=== PATIENT | female | born 1955 | race Caucasian/White ===

== ENCOUNTER 2022-04-04 09:04 | Outpatient (CLI) | payer MEDICARE, MEDICAID, SELFPAY ==
--- NOTE | 2022-04-04 09:25 | USCV_ITS ---
Vamshi Rossy Age: 66 Gender: F : 1955 Exam Date: 04/04/2022 09:55 Ordering Phys: Raj Castillo XX Technologist: MARIAA Exam Location: [facility] – [place] Indication: SYNCOPE Risk Factors: Previous Vascular Surgery: Right Brachial BP: / Left Brachial BP: / Right Left Velocity (cm/s) Spectral Plaque Velocity (cm/s) Spectral Plaque Syst/Diast Broadening Syst/Diast Broadening 96.60/ 29.10 Prox CCA 90.60 / 39.30 70.10/ 23.10 Mid CCA 70.90 / 34.20 59.80/ 17.90 Distal CCA 63.20 / 28.40 81.60/ 29.80 Prox ICA 42.10 / 18.40 79.50/ 35.00 Mid ICA 73.00 / 36.20 82.90/ 37.10 Distal ICA 65.10 / 27.20 159.10 ECA 152.40 0.86 ICA/CCA 0.81 Antegrade Vertebral Antegrade 39.40/ 15.80 cm/s 46.00/ 22.30 cm/s Tri Subclavian Tri 159.1 130.1 0 0 FINDINGS Comparison: none available. No significant elevation of systolic or diastolic velocities. Diffuse bilateral scattered calcified plaque and intimal thickening throughout the common carotid arteries and extending through the bifurcation, right greater than left. Antegrade vertebral arteries. CONCLUSIONS Bilateral ICA stenosis less than 50%. Diffuse carotid atherosclerosis. Dr. Kinjal Fletcher DO (Electronically Signed) Final Date: 04 Apr 2022 10:49 S
--- NOTE | 2022-04-04 09:25 | USCV_ITS ---
Rossy Bonds Age: 66 Gender: F : 1955 Exam Date: 04/04/2022 10:11 Ordering Phys: Raj Castillo XX Technologist: MARIAA [place] [facility] [facility] [place]ication: CHRONIC SYSTOLIC CHF BP: 120 / 96 HR: 98 Rhythm: Sinus Technical Quality: Adequate MEASUREMENTS (Male / Female) Normal Values 2D ECHO LV Diastolic Diameter PLAX 4.5 cm 4.2 - 5.9 / 3.9 - 5.3 cm LV Systolic Diameter PLAX 2.9 cm IVS Diastolic Thickness 1.1 cm 0.6 - 1.0 / 0.6 - 0.9 cm IVS Systolic Thickness 1.3 cm LVPW Diastolic Thickness 1.0 cm 0.6 - 1.0 / 0.6 - 0.9 cm LVPW Systolic Thickness 1.6 cm LVOT Diameter 2.0 cm LV Ejection Fraction 2D Teich 63.5 % LV Ejection Fraction MOD 2C 61.6 % LV Ejection Fraction 2C AL 61.6 % LA Diameter 2.9 cm LA Width 2.9 cm LA Height 5.4 cm RA Width 3.0 cm RA Height 4.6 cm Aorta at Sinotubular Diameter 2.5 cm IVC Diameter 1.6 cm M-MODE Aortic Annulus Diameter 2.6 cm LA Ao Ratio MM 1.1 MV E Point Septal Separation 0.4 cm DOPPLER AV Peak Velocity 152.7 cm/s LVOT Peak Velocity 99.0 cm/s AV Area Cont Eq vti 2.3 cm squared AV Area Cont Eq pk 2.0 cm squared MV Peak Velocity 121.0 cm/s MV Area PHT 5.0 cm squared MV E' Velocity 52.0 cm/s Mitral E to MV E' Ratio 5.9 Mitral E to LV E' Lateral Ratio 5.7 Mitral E to LV E' Septal Ratio 6.0 TR Peak Velocity 193.1 cm/s TR Peak Gradient 14.9 mmHg TR Mean Velocity 157.4 cm/s TR Mean Gradient 11.2 mmHg TR Velocity Time Integral 57.1 cm TV Peak E Velocity 49.0 cm/s Right Atrial Pressure 3.0 mmHg Pulmonary Artery Systolic Pressu 17.9 mmHg PV Peak Velocity 106.0 cm/s RV Acceleration Time 0.1 s RV Ejection Time 0.3 s RV AcT/ET 0.3 FINDINGS Left Ventricle Normal left ventricular size, systolic function and wall thickness, with no regional wall motion abnormalities. Left ventricular ejection fraction is estimated at 60 %. Indeterminate diastolic function. Right Ventricle Normal right ventricular size and systolic function. Right ventricular systolic pressure 24 mmHg. Right Atrium Normal right atrial size. Left Atrium Normal left atrial size. Mitral Valve Structurally normal mitral valve. No mitral valve stenosis. Trace mitral valve regurgitation. Aortic Valve Structurally normal trileaflet aortic valve. No aortic valve stenosis. No aortic valve regurgitation. Tricuspid Valve Structurally normal tricuspid valve. No tricuspid valve stenosis. Trace tricuspid valve regurgitation. Pulmonic Valve Structurally normal pulmonic valve. No pulmonary valve stenosis. Trace pulmonary valve regurgitation. Pericardium No pericardial effusion. Aorta Normal size aortic root and proximal ascending aorta. Normal sized inferior vena cava. CONCLUSIONS 1. Normal left ventricular size, systolic function and wall thickness, with no regional wall motion abnormalities. Left ventricular ejection fraction is estimated at 60 %. Indeterminate diastolic function. 2. Normal right ventricular size and systolic function. 3. Trace tricuspid valve regurgitation. 4. No significant change when compared to prior echo dated 02/04/2018. Leora Hemphill MD (Electronically Signed) Final Date: 05 Apr 2022 15:49 S
== END 2022-04-04 09:05 | disposition home or self-care (01) ==
PROVIDERS: PCP Family Medicine; Visit Provider Family Medicine
DX: I50.22 Chronic systolic (congestive) heart failure (principal); I25.2 Old myocardial infarction; I25.118 Atherosclerotic heart disease of native coronary artery with other forms of angina pectoris; R55 Syncope and collapse; I65.23 Occlusion and stenosis of bilateral carotid arteries
CPT/HCPCS: 93306; 93880

== ENCOUNTER 2022-04-11 08:53 | Outpatient (CLI) | payer MEDICARE, MEDICAID, SELFPAY ==
[2022-04-11 09:06] VITALS: BMI 31.9
--- NOTE | 2022-04-11 09:26 | ECG_ITS ---
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 Interpretive Statements NAME OF STUDY: LEXISCAN SESTAMIBI STRESS TEST INDICATION: Atrial fibrillation PROCEDURE: At the baseline, the blood pressure was 131/70 mmHg with a heart rate of 97 bpm. The electrocardiogram showed atrial flutter with normal axis. Poor anterior R wave progression. Nonspecific ST-T wave changes. The Lexiscan was infused over a period of 20 seconds. A total of 0.4 milligrams of Lexiscan was infused. The stress phase was continued for a total of 5 minutes. Heart rate at the end of the stress phase was 129 bpm with a blood pressure of 122/77 mm Hg. T of 120he EKG at the peak infusion revealed no significant ST-T wave changes. Sestamibi was injected 20 seconds after the Lexiscan infusion. Blood pressure at the end of the recovery phase was 136/65 mmHg with a heart rate of 129 beats per minute. CONCLUSION: 1. No significant EKG changes with the LexiScan infusion. 2. No LexiScan induced chest pain or cardiac arrhythmia. 3. Normal blood pressure and heart rate response. 4. Sestamibi/sestamibi perfusion scan pending; see separate report. Electronically Signed On 04-15-2022 17:07:13 CDT by Leora Hemphill M.D. [id number]
--- NOTE | 2022-04-11 09:27 | NMCV_ITS ---
NM june perf SPECT r/s* [id number] Rossy Bonds Age: 66 Gender: F : 1955 Exam Date: 04/11/2022 10:30 Ordering Phys: Raj Castillo Technologist: MILADY [place] Exam Location: [facility] Indications: SYSTOLIC HEART FAILURE STRESS TEST [facility] IMAGE PROTOCOL Rest/Stress 1 Lexiscan Day Radiopharmaceutical Dose (mCi) Administration Site Administered by Rest: Tc-99m 10.8 IV MILADY [place] Sestamibi Stress:Tc-99m 32.7 IV Anneliese Faustin, MILADY Sestamibi Rest: 11-Apr-2022 60 Discovery 630 Stress: 11-Apr-2022 30 Discovery 630 0.4mg Lexiscan. Images obtained in supine and prone position. SPECT RESULTS Technical Quality: Excellent Raw Data Analysis: Normal Image Corrections: No attenuation or motion correction applied Summed Stress Score: 0 Summed Rest Score: 1 Summed Difference Score: 0 PERFUSION FINDINGS Small size perfusion abnormality of mild severity of apical lateral wall on stress images. FUNCTIONAL RESULTS (calculated via Gated SPECT) Stress Image LV EF (%): 69 Stress EDV (mL):70 TID: 0.9 Stress ESV (mL):22 FUNCTIONAL FINDINGS: The left ventricle is normal in size. Transient Ischemia Dilatation of 0.9. The left ventricular ejection fraction is normal with a value of 69%. There is normal left ventricular wall thickening with no regional wall motion abnormality. Normal end-diastolic volume. IMPRESSIONS 1. Small sized reversible perfusion abnormality of apical lateral wall. 2. This may represent small area of ischemia in left anterior descending artery territory. 3. Overall left ventricular systolic function is normal without regional wall motion abnormalities, LVEF=69%. 4. EKG portion of the study will be reported separately. Leora Hemphill MD (Electronically Signed) Final Date: 15 Apr 2022 17:22 S
[2022-04-11] MEDS: regadenoson 0.4 Mg/5 ml Syringe IVP (10:59)
[2022-04-11 11:16] VITALS: BP 152/69; PULSE 129
== END 2022-04-11 08:54 | disposition home or self-care (01) ==
LOC: CDL 08:55
PROVIDERS: PCP Family Medicine; Visit Provider Family Medicine
DX: I50.22 Chronic systolic (congestive) heart failure (principal)
CPT/HCPCS: 78452; 93017; A9500; J2785

== ENCOUNTER → 2022-04-25 13:44 | Outpatient (BNVA) | payer MEDICARE, MEDICAID, SELFPAY | PROVIDERS: PCP Family Medicine; Visit Provider Internal Medicine Cardiovascular Disease | DX: I25.10 Atherosclerotic heart disease of native coronary artery without angina pectoris (principal); I48.0 Paroxysmal atrial fibrillation; E78.5 Hyperlipidemia, unspecified; Z79.01 Long term (current) use of anticoagulants; I11.0 Hypertensive heart disease with heart failure; I50.32 Chronic diastolic (congestive) heart failure | CPT/HCPCS: 99213; 99214 ==

== ENCOUNTER → 2023-07-23 15:19 | Outpatient (BNVA) | payer MEDICARE, MEDICAID, SELFPAY | PROVIDERS: PCP Family Medicine; Visit Provider Internal Medicine Cardiovascular Disease | DX: I48.91 Unspecified atrial fibrillation (principal); I25.10 Atherosclerotic heart disease of native coronary artery without angina pectoris; I11.0 Hypertensive heart disease with heart failure; I50.32 Chronic diastolic (congestive) heart failure; I48.0 Paroxysmal atrial fibrillation; E78.5 Hyperlipidemia, unspecified; F17.200 Nicotine dependence, unspecified, uncomplicated | CPT/HCPCS: 93005; 99214 ==

== ENCOUNTER → 2024-06-10 14:59 | Outpatient (BNVA) | payer MEDICARE, MEDICAID, SELFPAY | PROVIDERS: PCP Family Medicine; Visit Provider Internal Medicine Cardiovascular Disease | DX: R06.02 Shortness of breath (principal); I10 Essential (primary) hypertension | CPT/HCPCS: 36415; 80048; 83880 ==

== ENCOUNTER 2024-11-05 09:26 | Outpatient (CLI) | payer MEDICARE, MEDICAID, SELFPAY ==
--- NOTE | 2024-11-05 09:34 | PETR_ITS ---
PROCEDURE INFORMATION: Exam: PET/CT Skull Base to Mid-thigh Exam date and time: 11/05/2024 11:16 AM Age: 68 years old Clinical indication: Abnormal findings; Pulmonary nodules LABS AND CLINICAL REPORTS: Glucose: 125 mg/dl Treatment strategy for malignancy (PET staging): Initial Staging (PI) TECHNIQUE: Imaging protocol: Following at least four-hour fasting and following the injection of radiopharmaceutical, low dose CT images were obtained. Then, PET images were obtained. Attenuation corrected images were constructed using the CT scan. Fused images of PET and CT were reviewed. The standardized uptake values (SUV) reported below are maximum values within a region of interest, expressed in gm/ml. Exam includes orbital meatal line to mid-thigh. SUV normalization method: BodyWeight Radiopharmaceutical: 11.78 mCi F-18 FDG (Fluorodeoxyglucose), IV. Time of imaging post radiopharmaceutical administration: 53 minutes Injection site: right ac COMPARISON: No relevant prior studies available. FINDINGS: Brain: Normal physiologic uptake. Pharynx: No abnormal uptake. Larynx: No abnormal uptake. Lungs, pleura and trachea: Mildly increased uptake of 2.6 SUV in the perivascular area in the right upper lobe on series 301, image 77 with no obvious discrete nodule on CT. There is calcified granuloma in the right middle lobe. No pleural effusion. Heart: No abnormal uptake. No cardiomegaly. No pericardial effusion. Mild coronary artery calcifications. Closure device within the interatrial septum. Mediastinal space: See below in lymph nodes . Liver: No abnormal uptake. Maximum uptake is 3.7 SUV. Gallbladder and biliary ducts: No abnormal uptake. Status post cholecystectomy. Pancreas: No abnormal uptake. Spleen: No abnormal uptake. No splenomegaly. Adrenal glands: No abnormal uptake. No nodules. Kidneys and ureters: Normal physiologic uptake. No hydronephrosis. The left kidney is normal in size, the right kidney is mild the atrophic particularly in the upper pole with a few punctate calcifications representing parenchymal calcifications or tiny nonobstructive stones. There are bilateral simple renal cysts including 5.5 cm cyst exophytic laterally from the midpole of the right kidney and 1.7 cm cyst anteriorly in the midpole of the left kidney. Stomach and bowel: Increased uptake in the right and left colon and multiple loops of small bowel with no corresponding CT abnormality is likely benign. No abnormal dilatation of the bowel. Mild diverticulosis of the sigmoid colon. Intraperitoneal and retroperitoneal spaces: No abnormal uptake. No ascites. Bladder: Normal physiologic uptake. Reproductive: No abnormal uptake. Vasculature: No abnormal uptake. No aortic aneurysm. Lymph nodes: Mildly increased uptake of 3.7 SUV within the left hilum possibly within normal size lymph node. No FDG avid lymphadenopathy in the neck, abdomen, pelvis, and extremities. There is sequela of exposure to granulomatous disease with calcified granulomas in normal size mediastinal and bilateral hilar lymph nodes. Skeleton: No abnormal uptake in the visualized axial and appendicular skeleton. Mild chronic compression of T3, T7, T8, T12, L3 and L4 with no anterior wedging or retropulsion. Status post L3 vertebroplasty. Soft tissues: Linear increased intramuscular uptake in the right paraspinal muscles is likely benign. PET/PET skull to thigh INIT [id number] IMPRESSION: 1. Slightly increased uptake of 2.6 SUV in the perivascular area in the right upper lobe with no discrete nodule on CT is indeterminate. Slightly increased uptake of 3.7 SUV in the left hilum presumably within normal size lymph node is nonspecific, may be benign reactive in nature. No other suspicious FDG avid findings. 2. Benign non FDG avid incidental findings (sequela of exposure to granulomatous disease with calcified mediastinal and hilar lymph nodes and calcified granuloma in the right middle lobe, mild atrophy of the right kidney, simple renal cysts, multiple chronic compressions in the thoracic and lumbar spine, L3 vertebroplasty, cholecystectomy, closure of the interatrial septal defect).
== END 2024-11-05 09:27 | disposition home or self-care (01) ==
LOC: RAD 09:28
PROVIDERS: PCP Family Medicine; Visit Provider Family Medicine
DX: R91.8 Other nonspecific abnormal finding of lung field (principal); J84.10 Pulmonary fibrosis, unspecified; Z90.49 Acquired absence of other specified parts of digestive tract; N20.0 Calculus of kidney; N28.1 Cyst of kidney, acquired; R93.3 Abnormal findings on diagnostic imaging of other parts of digestive tract
CPT/HCPCS: 78815; A9552

== ENCOUNTER → 2025-08-02 09:37 | Outpatient (BNVA) | payer MEDICARE, MEDICAID, SELFPAY | PROVIDERS: PCP Family Medicine; Visit Provider Nurse Practitioner Family | DX: L57.8 Other skin changes due to chronic exposure to nonionizing radiation (principal); L81.4 Other melanin hyperpigmentation; D22.5 Melanocytic nevi of trunk; L82.1 Other seborrheic keratosis; D48.5 Neoplasm of uncertain behavior of skin | CPT/HCPCS: 11102; 99203 ==